=== PATIENT | male | born 1945 | race Caucasian/White ===

== ENCOUNTER → 2016-10-09 | Outpatient (CLI) | payer OTHER ==
[~2016-10-09] MED LIST: ASPIR 8181 MG PO; CLORAZEPATE DIP15 MG PO; DILTIAZEM HCL90 MG PO; IBUPROFEN 600600 M1 PO; LEVAQUIN 750 M750 MG PO; TEGRETOL XR200 MG PO
== END ==
LOC: RAD 14:11
DX: J18.9 Pneumonia, unspecified organism (principal)

== ENCOUNTER 2017-08-15 15:24 | Emergency (ER) | payer OTHER ==
[~2017-08-15] VITALS: Ht 190.5 cm; Wt 108.9 kg
--- NOTE | ~2017-08-15 | EKG ---
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1945 Requested By: Fatmata Jiménez Order Number: [id number] MD: Karri Rudolph Measurements Intervals [place] Rate: 77 P: [place]: QRS: -15 QRSD: 95 T: -67 QT: 379 QTc: 429 Interpretive Statements Atrial fibrillation Anteroseptal infarct, old Nonspecific ST and T wave abnormality Compared to ECG 09/24/2016 15:02:42 No significant change was found Electronically Signed On 08-16-2017 14:36:55 MAGAZINE WORKER by Karri Rudolph [email or web address] <ELECTRONICALLY SIGNED> By: Karri Rudolph MD, [facility] 08/16/17 1436 36 36 Karri Rudolph MD, [facility] /EPI
[2017-08-15] MEDS ORDERED: NEURONTIN 300300 M1 PO (15:30)
[2017-08-15] MEDS ORDERED: WELLBUTRIN XL150 MG PO (15:32)
[2017-08-15 15:43] LABS: HEMATOCRIT 48.1 % (42.0-52.0); HEMOGLOBIN 16.3 gm/dL (14.0-18.0); MCH 31.4 pg (26.0-34.0); MCV 92.4 fL (80.0-100.0); PLATELET COUNT 222 thou/uL (150-400); RDW 13.4 % (10.5-14.5); WBC 8.7 thou/uL (4.0-11.0)
[2017-08-15 15:50] LABS: CALCIUM 9.5 mg/dL (8.5-10.1); CREATININE 1.1 mg/dL (0.7-1.3); POTASSIUM 3.5 mmol/L (3.5-5.1)
[2017-08-15 16:01] LABS: ABSOLUTE NEUTROPHILS 5.4 thou/uL (1.4-8.2); ATYPICAL LYMPHS 2 %; MYELOCYTES 1 %
[2017-08-15] MEDS ORDERED: TESSALON PERLE100 MG PO (16:02)
== END 2017-08-15 16:58 | disposition home or self-care (01) ==
LOC: ER 15:24
PROVIDERS: Emergency Medicine
DX: J06.9 Acute upper respiratory infection, unspecified (principal); N28.9 Disorder of kidney and ureter, unspecified; I48.91 Unspecified atrial fibrillation; F31.9 Bipolar disorder, unspecified; Z87.891 Personal history of nicotine dependence

== ENCOUNTER → 2020-01-26 | Outpatient (CLI) | payer OTHER ==
[~2020-01-26] MED LIST changes: +NEURONTIN 300300 M1 PO; +TESSALON PERLE100 MG PO; +WELLBUTRIN XL150 MG PO
== END ==
LOC: SJCVC 14:31
PROVIDERS: ATTEND Internal Medicine
DX: I48.21 Permanent atrial fibrillation (principal); R94.31 Abnormal electrocardiogram [ECG] [EKG]; I10 Essential (primary) hypertension; E78.2 Mixed hyperlipidemia; Z79.82 Long term (current) use of aspirin; Z79.899 Other long term (current) drug therapy; Z82.49 Family history of ischemic heart disease and other diseases of the circulatory system; Z87.891 Personal history of nicotine dependence

== ENCOUNTER → 2020-07-28 | Outpatient (CLI) | payer OTHER | LOC: SJCVCIMAG 07:35 → SJCVC 08:31 → SJCVCIMAG 13:53 | PROVIDERS: ATTEND Internal Medicine | DX: I08.8 Other rheumatic multiple valve diseases (principal); I11.9 Hypertensive heart disease without heart failure; R94.31 Abnormal electrocardiogram [ECG] [EKG]; I48.21 Permanent atrial fibrillation; E78.5 Hyperlipidemia, unspecified; Z98.890 Other specified postprocedural states; Z79.899 Other long term (current) drug therapy; Z87.891 Personal history of nicotine dependence; Z82.49 Family history of ischemic heart disease and other diseases of the circulatory system ==

== ENCOUNTER 2020-10-30 15:08 | Emergency (ER) | payer OTHER ==
[~2020-10-30] VITALS: Ht 193 cm; Wt 104.3 kg
--- NOTE | ~2020-10-30 | EMS ---
[address] [address] EMS Patient Care Report Name: CHARLIE JOHNSON JR Room #: [facility] Reich#: [id number] Admission: 10/30/20 Attend Phys: Discharge: Date of : 45 Report #: [id number] THIS REPORT FOR: //name// Report Transmitted: 10/30/2020 18:37 EMS Care Summary [facility] MED-ACT Incident [id number] @ 10/30/2020 14:21 Incident Location [address] [place] [address] Patient CHARLIE JOHNSON Male, 75 Years 1945 Patient Address [address] [place] [address] Patient History Atrial Fibrillation, Patient Allergies No known allergies, Patient Medications Bupropion, Tegretol, Diltiazem, Sertraline, Chief Complaint diarrhea Disposition Transported No Lights/[place] Dispatch Reason Sick Person Transported To [facility] Narrative History-Pt states that he has had diarrhea for about 2 weeks and hasn't eaten much in about a week. Last oral intake was about a week ago and it was a milk [address] [address] EMS Patient Care Report Name: CHARLIE JOHNSON JR Room #: [facility] Reich#: [id number] Admission: 10/30/20 Attend Phys: Discharge: Date of : 45 Report #: [id number] shake. Pt states that he hasn't been hungry. Pt also states that he was seen at the ED about a week ago and was diagnosed with a UTI, also gastritis and was given an antibiotic. Pt has a hx of afib. Assessment: Neuros: GCS 15, A/O times 4. HEENT: Eyes: KATELYNN, neg blurred or double vision, Throat: patent. Neck: supple, neg JVD, trachea midline. Chest: neg chest pain or SOB, CBBS. Abdomen: soft, non tender, neg masses or pulsations. Pelvis/GI/: pt states to normal urination and diarrhea. Extremities: +CMS. Rendered Tx-Vitals taken and monitored, EKG, bG, infrared temp, IV with NS 150 ml. Destination-Pt was sitting on a bed upon our arrival in a apartment that was very unkept, [facility]. Pt was able to stand and walk a close distance out his door to the cot where he was secured with 3 straps and shoulder straps then moved to the ambulance. Pt was put in a semi-fowlers position. pt was transported to [facility] and taken to room 12 where he was able to move to the bed on his own. Care was transferred to staff. Initial Vitals @14:41P: 52,SpO2: 78,WA Suspected: false @14:59P: 83,R: 14,BP: 147/90,Pain: 0/10,GCS: 15,SpO2: 97,Revised Trauma: 12,WA Suspected: false @14:41P: 50,R: 14,BP: 155/87,Pain: 0/10,GCS: 15,Temp: 98.3F,Glucose: 79,SpO2: 94,Revised Trauma: 12, Assessments @14:56MENTAL:Person Oriented,Time Oriented,Place Oriented,Event Oriented,SKIN:HEENT:Eyes: Left Pupil: 4-mm,Eyes: Right Pupil: 4-mm,Head/Face: No Abnormalities,Neck/Airway: No Abnormalities,LUNG SOUNDS:ABDOMEN:PELVIS//GI:No Abnormalities,EXTREMITIES:Left Arm: No Abnormalities,Right Arm: No Abnormalities,Left Leg: No Abnormalities,Right Leg: No Abnormalities,PULSE:Radial: 2+ Normal,NEURO:No Abnormalities, Impression Diarrhea Procedures @14:56Surgical Mask on PatientResponse: Unchanged@14:49Normal Saline (.9% NaCl) 150cc (18 ga) Site: Antecubital-LeftResponse: UnchangedSucceeded Timeline 14:19,Call Received 14:19,Psap Call 14:21,Dispatched 14:22,En Route 14:28,On Scene 14:32,At Patient [address] [address] EMS Patient Care Report Name: CHARLIE JOHNSON JR Room #: [facility]STINY Reich#: [id number] Admission: 10/30/20 Attend Phys: Discharge: Date of : 45 Report #: [id number] 14:41,BP: / M,PULSE: 52,RR: R,SPO2: 78 Ox,ETCO2: ,BG: ,PAIN: ,GCS: , 14:41,BP: 155/87 M,PULSE: 50,RR: 14 R,SPO2: 94 Ox,ETCO2: ,B,PAIN: 0,GCS: 15, 14:49,Normal Saline (.9% NaCl) 150cc 18 ga Site: Antecubital-Left,Response: UnchangedSucceeded, 14:51,Depart Scene 14:56,Surgical Mask on Patient,Response: Unchanged 14:59,BP: 147/90 M,PULSE: 83,RR: 14 R,SPO2: 97 Ox,ETCO2: ,BG: ,PAIN: 0,GCS: 15, 15:04,At Destination 15:23,Call Closed Disclaimer v1.1 Copyright 2020 [employer] This EMS Care Summary contains data elements from the applicable legal record (which may be displayed differently). It is designed to provide pertinent information for the following purposes: continuity of care, clinical quality, and state data reporting. The complete legal record is available to ED staff and administrators of the receiving hospital in [employer]'s Patient Tracker. All data is provided "as is."
[2020-10-30 15:35] LABS: ABSOLUTE NEUTROPHILS 4.3 thou/uL (1.4-8.2); BASOPHILS 0.7 % (0.0-2.0); EOSINOPHILS 0.8 % (0.0-3.0); HEMATOCRIT 43.2 % (42.0-52.0); HEMOGLOBIN 14.8 gm/dL (14.0-18.0); LYMPHOCYTES 19.7 % (24.0-44.0); MCH 30.8 pg (26.0-34.0); MCHC 34.2 g/dL (28.0-37.0); MCV 89.9 fL (80.0-100.0); MONOCYTES 15.7 % (1.0-8.0); PLATELET COUNT 259 thou/uL (150-400); POLYS 63.1 % (36.0-66.0); RBC 4.81 mil/uL (4.50-6.00); RDW 13.6 % (10.5-14.5); WBC 6.9 thou/uL (4.0-11.0)
[2020-10-30 15:45] LABS: ANION GAP 15 mmol/L (7-16); BUN 8 mg/dL (7-18); CALCIUM 8.7 mg/dL (8.5-10.1); CHLORIDE 106 mmol/L (98-107); CO2 22 mmol/L (21-32); GLUCOSE 86 mg/dL (74-106); POTASSIUM 3.3 mmol/L (3.5-5.1); SODIUM 143 mmol/L (136-145)
[2020-10-30 15:55] LABS: ALBUMIN 3.2 g/dL (3.4-5.0); LIPASE 149 U/L (73-393); SGOT 16 U/L (15-37); SGPT 19 U/L (16-63); TOTAL BILIRUBIN 0.6 mg/dL (0.2-1.0); TOTAL PROTEIN 6.7 g/dL (6.4-8.2); TROPONIN-I <0.06 ng/mL (<0.06)
[2020-10-30 18:32] LABS: URINE BLOOD TRACE (Negative); URINE CLARITY CLEAR; URINE COLOR YELLOW; URINE GLUCOSE-RANDOM* NEGATIVE (Negative); URINE KETONES 3+ (Negative); URINE LEUKOCYTES-REFLEX NEGATIVE (Negative); URINE NITRITE-REFLEX NEGATIVE (Negative); URINE PROTEIN (DIPSTICK) TRACE (Negative); URINE SPECIFIC GRAVITY >= 1.030 (1.005-1.035); URINE UROBILINOGEN 0.2 E.U./dl (0.2-1.0)
[2020-10-30 18:35] LABS: ICTOTEST (BILI CONFIRMATORY) Negative (Negative); URINE BILIRUBIN NEGATIVE (Negative); URINE REDUCING SUBSTANCE NEGATIVE
[2020-10-30 20:25] VITALS: BP 139/69
--- NOTE | 2020-10-31 09:34 | EKG ---
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 : 1945 Requested By: Brent Negrete Order Number: [id number] MD: Karri Rudolph Measurements Intervals [place] Rate: 85 P: [place]: QRS: -24 QRSD: 90 T: 125 QT: 574 QTc: 683 Interpretive Statements Atrial fibrillation Ventricular premature complex Anteroseptal infarct, old Repol abnrm suggests ischemia, anterolateral Prolonged QT interval Compared to ECG 08/15/2017 15:37:07 Ventricular premature complex(es) now present ST segment abnormality is more pronounced Electronically Signed On 10-31-2020 9:34:07 CDT by Karri Rudolph [email or web address] <ELECTRONICALLY SIGNED> By: Karri Rudolph MD, [facility] 10/31/20 0934 1548 1548 Karri Rudolph MD, [facility] /EPI
== END 2020-10-30 20:25 | disposition home or self-care (01) ==
LOC: ER 15:08
PROVIDERS: Emergency Medicine
DX: R19.7 Diarrhea, unspecified (principal); E87.6 Hypokalemia; I48.91 Unspecified atrial fibrillation; Z87.891 Personal history of nicotine dependence; Z79.82 Long term (current) use of aspirin; Z79.899 Other long term (current) drug therapy; Z79.01 Long term (current) use of anticoagulants